=== PATIENT | female | born 1980 | race Two or more races ===

== ENCOUNTER 2021-01-26 07:38 | Inpatient (IN) | payer MEDICAID ==
[~2021-01-26] VITALS: Ht 157.5 cm; Wt 72.6 kg
[2021-01-26] MEDS ORDERED: SODIUM CHLORIDE 0.9% 1,000 ML IV ONE (08:00)
[2021-01-26] MEDS ORDERED: dilTIAZem 25 MG/5 ML VIAL IV ONE ×2 (08:00→08:30)
[2021-01-26] MEDS ORDERED: dilTIAZem 125mg/125ml BAG KIT 125 ML IV ONE (08:00)
[2021-01-26 08:18] LABS: Albumin 3.8 g/dL (3.4-5.0); Anion Gap 10 (5-15); Blood Urea Nitrogen 8 mg/dL (7-18); Calcium 8.7 mg/dL (8.5-10.1); Carbon Dioxide 24 mmol/L (21-32); Chloride 106 mmol/L (98-107); Glucose 117 mg/dL (74-106); Potassium 3.9 mmol/L (3.5-5.1); Sodium 140 mmol/L (136-145)
[2021-01-26 08:20] LABS: Alanine Aminotransferase 30 U/L (13-56); Aspartate Aminotransferase 21 U/L (15-37); BUN/Creatinine Ratio 11.9; GFR African American 125 mL/min; GFR Non-African American 103 mL/min
[2021-01-26 08:25] LABS: Alkaline Phosphatase 74 U/L (45-117); Bilirubin, Total 0.4 mg/dL (0.2-1.0); Total Protein 8.4 g/dL (6.4-8.2)
[2021-01-26 08:35] LABS: Basophils # (auto) 0 10 ^3/uL (0-0.2); Basophils % (auto) 0.5 % (0.0-2.0); Eosinophils # (auto) 0.1 10 ^3/uL (0-0.8); Hematocrit 44.8 % (36.0-46.0); Hemoglobin 15.4 g/dL (12.2-16.2); Lymphocytes # (auto) 2.3 10 ^3/uL (0.4-5.4); Lymphocytes % (auto) 29.1 % (10.0-50.0); Mean Corpuscular Hemoglobin 30.3 pg (28.0-32.0); Mean Corpuscular Hgb Conc. 34.3 g/dL (32.0-36.0); Mean Corpuscular Volume 88.2 fL (80.0-100.0); Monocytes # (auto) 0.7 10 ^3/uL (0-1.3); Monocytes % (auto) 8.7 % (0.0-12.0); Neutrophils # (auto) 4.8 10 ^3/uL (1.6-8.6); Neutrophils % (auto) 60.7 % (37.0-80.0); Nucleated Red Blood Cells % 0.1 %; Platelet Count (auto) 334 10^3/uL (140-450); Red Blood Cells 5.08 10^6/uL (4.0-5.20); Red Cell Distribution Width 14.6 % (11.8-14.3); White Blood Cell 7.9 10^3/uL (4.4-10.8)
[2021-01-26] MEDS ORDERED: ADENOSINE 6 MG/2 ML INJ IV ONE (09:00)
[2021-01-26] MEDS ORDERED: NITROGLYCERIN 0.4 MG SL TAB SL PRN (09:45)
[2021-01-26] MEDS ORDERED: ACETAMINOPHEN 325 MG TAB PO PRN (09:45)
[2021-01-26] MEDS ORDERED: HYDROcodone-ACET 5/325MG TAB PO PRN (09:45)
[2021-01-26] MEDS ORDERED: DOCUSATE SOD 100 MG CAP PO PRN (09:45)
[2021-01-26] MEDS ORDERED: TEMAZEPAM 15 MG CAP PO PRN (09:45)
[2021-01-26] MEDS ORDERED: MORPHINE SULF INJ 2 MG/ML SYRINGE 1ML IV PRN ×2 (09:45→10:15)
[2021-01-26] MEDS ORDERED: ONDANSETRON HCL 4 MG/2 ML VIAL IV PRN (09:45)
[2021-01-26 09:57] LABS: Urine Bacteria NONE SEEN /hpf (None Seen); Urine Blood Negative /uL (Negative); Urine Specific Gravity 1.008 (1.001-1.035); Urine WBC 1 /hpf (0 - 5)
[2021-01-26] MEDS ORDERED: ENOXAPARIN SOD 40 MG/0.4 ML SYRINGE SC SCH (10:00)
[2021-01-26 13:04] VITALS: BP 93/40
== END 2021-01-26 13:41 | disposition home or self-care (01) | DRG 201 ==
LOC: ER 07:38 → EAST 09:36 → ER 13:49
PROVIDERS: ADMIT Nurse Practitioner; ATTEND Nurse Practitioner
DX: I47.1 Supraventricular tachycardia (principal); Z20.822 Contact with and (suspected) exposure to COVID-19; Z87.891 Personal history of nicotine dependence
CPT/HCPCS: 36415; 71045; 80053; 81001; 83735; 84443; 84484; 85025; 85049; 87426; 93005; 93306; 96365; 96375; 96376; 99291; G0378

== ENCOUNTER 2021-10-13 15:12 | Emergency (ER) | payer MEDICAID ==
[~2021-10-13] VITALS: Ht 157.5 cm; Wt 74.8 kg
[2021-10-13] MEDS ORDERED: dilTIAZem HCL 50 MG/10 ML VIAL IV ONE (15:28)
[2021-10-13] MEDS ORDERED: dilTIAZem 25 MG/5 ML VIAL IV ONE (15:28)
[2021-10-13] MEDS ORDERED: MIDAZOLAM HCL 5 MG/ML-1ML VIAL ONE (15:36)
[2021-10-13] MEDS ORDERED: CALCIUM CHL 100MG/ML 1,000 MG in D5W 5% 100 ML IV ONE (15:45)
[2021-10-13] MEDS ORDERED: MORPHINE SULFATE 4 MG/ML SYR/VIAL ONE (15:49)
[2021-10-13] MEDS ORDERED: ADENOSINE 6 MG/2 ML INJ IV ONE ×2 (15:52→16:00)
[2021-10-13] MEDS ORDERED: MORPHINE SULFATE INJECTION 2 MG/ML SYRG IV ONE (16:00)
[2021-10-13 16:17] LABS: Basophils # (auto) 0 10 ^3/uL (0-0.2); Basophils % (auto) 0.5 % (0.0-2.0); Eosinophils # (auto) 0.1 10 ^3/uL (0-0.8); Hematocrit 44.5 % (36.0-46.0); Hemoglobin 15.5 g/dL (12.2-16.2); Lymphocytes # (auto) 2.6 10 ^3/uL (0.4-5.4); Lymphocytes % (auto) 28.2 % (10.0-50.0); Mean Corpuscular Hemoglobin 30.8 pg (28.0-32.0); Mean Corpuscular Hgb Conc. 34.8 g/dL (32.0-36.0); Mean Corpuscular Volume 88.4 fL (80.0-100.0); Monocytes # (auto) 0.6 10 ^3/uL (0-1.3); Monocytes % (auto) 6.8 % (0.0-12.0); Neutrophils % (auto) 63.5 % (37.0-80.0); Nucleated Red Blood Cells % 0.1 %; Red Blood Cells 5.03 10^6/uL (4.0-5.20); Red Cell Distribution Width 13.9 % (11.8-14.3); White Blood Cell 9.4 10^3/uL (4.4-10.8)
[2021-10-13 17:14] LABS: Albumin 4.4 g/dL (3.4-5.0); BUN/Creatinine Ratio 10.4; Calcium 9.7 mg/dL (8.5-10.1); Potassium 3.7 mmol/L (3.5-5.1)
[2021-10-13 17:18] LABS: Bilirubin, Total 0.4 mg/dL (0.2-1.0); Total Protein 8.8 g/dL (6.4-8.2)
[2021-10-13 18:12] VITALS: BP 110/85
== END 2021-10-13 18:58 | disposition home or self-care (01) ==
LOC: ER 15:14
DX: I47.1 Supraventricular tachycardia (principal); I45.6 Pre-excitation syndrome
CPT/HCPCS: 36415; 71046; 80053; 84443; 84484; 84702; 85025; 85379; 93005; 96374; 96375; 99285; J0153; J2270; J7060; J2250

== ENCOUNTER 2021-12-01 15:05 | Emergency (ER) | payer MEDICAID ==
[~2021-12-01] VITALS: Ht 154.9 cm; Wt 72.6 kg
[2021-12-01] MEDS ORDERED: ADENOSINE 6 MG/2 ML INJ IV ONE ×4 (15:14→15:15)
[2021-12-01 19:37] VITALS: BP 111/75
== END 2021-12-01 19:55 | disposition home or self-care (01) ==
LOC: ER 15:05
DX: I47.1 Supraventricular tachycardia (principal)
CPT/HCPCS: 93005; 96374; 99285; J0153